=== PATIENT | male | born 1975 | race Two or more races ===

== ENCOUNTER 2023-08-11 18:22 | Emergency (ER) | payer MEDICAID, OTHER ==
[~2023-08-11] VITALS: Ht 177.8 cm; Wt 110.5 kg
[~2023-08-11 18:22] MED LIST: NYQUIL
[2023-08-11] MEDS ORDERED: TETRACAINE HCL 0.5% OPTH(EYE) SOLN 4ML EACHEYE ONE (21:30)
[2023-08-11] MEDS ORDERED: FLUORESCEIN SOD OPTH TEST STRIP EACHEYE ONE (21:30)
[2023-08-11 22:01] VITALS: BP 123/84; PULSE 81; RESP 18; TEMP 98.3; O2SAT 97
[2023-08-11] MEDS ORDERED: ERY05OO OP (22:10)
== END 2023-08-11 22:43 | disposition home or self-care (01) ==
LOC: ER 18:22
DX: S05.02XA Injury of conjunctiva and corneal abrasion without foreign body, left eye, initial encounter (principal); S05.01XA Injury of conjunctiva and corneal abrasion without foreign body, right eye, initial encounter; Z79.899 Other long term (current) drug therapy; X58.XXXA Exposure to other specified factors, initial encounter; Y93.89 Activity, other specified; Y92.89 Other specified places as the place of occurrence of the external cause; Y99.8 Other external cause status